=== PATIENT | female | born 1955 | race Caucasian/White ===

== ENCOUNTER 2022-04-28 10:03 | Inpatient (IN) ==
[2022-04-28] MEDS ORDERED: SODIUM CHLORIDE 0.9% 1,000 ML IV STA ×2 (11:55→15:01)
[2022-04-28 12:04] LABS: Basophils % 0.2 % (0.0-0.8); Eosinophils % 0.2 % (0.00-10.9); Hematocrit 37.4 VOL% (35.7-47.0); Hemoglobin 11.9 GM/DL (12.0-16.0); Immature Granulocytes % 35.2 %; Immature Granulocytes Absolute 4.37 #; Lymphocytes # 4.2 10*3/uL (1.4-4.0); Lymphocytes % 33.5 % (21.3-54.2); Mean Corpuscular HGB Conc 31.8 GM/DL (32-36); Mean Corpuscular Volume 96.1 FL (87-102); Mean Platelet Volume 9.7 FL (9.6-12.0); Monocytes # 1.9 10*3/uL (0.11-0.8); Monocytes % 14.9 % (1.7-12.7); NRBC # 0.79 10*3/uL; Platelet Count 113 T/CUMM (130-400); Red Blood Count 3.89 MC/CUMM (3.8-5.5); Red Cell Distribution Width 20.9 % (9.3-17.3); White Blood Count 12.4 T/CUMM (4-12)
[2022-04-28 12:13] LABS: PT Patient Result 10.7 SECS (10.1-12.1); Partial Thromboplastin Time 23.9 SECS (23.7-32.9)
[2022-04-28 12:24] LABS: Amorphous Crystals,Urine Few /HPF (Few); Bilirubin,Urine Negative (Negative); Blood, Urine Negative (Negative); Calcium Oxalate Crystals,Urine Occasional /HPF (Few); Glucose,Urine (UA) Negative (Negative); Ketones,Urine Trace mg/dL (Negative); Mucus,Urine Occasional /LPF (Occasional); Nitrite,Urine Negative (Negative); Protein,Urine 100 mg/dL (Negative); RBC,Urine 2 /HPF (0-4); Urine Appearance Slightly Cloudy (Clear); Urine Color Dark yellow (Yellow); Urine Specific Gravity 1.025 (1.001-1.035); Urine Urobilinogen 0.2 eU/dL (<2.0); Urine pH 8.5 (4.5-8.0)
[2022-04-28 12:33] LABS: Alanine Aminotransferase 23 U/L (13-56); Albumin 3.2 G/DL (3.4-5.0); Alkaline Phosphatase 137 U/L (45-117); Aspartate Amino Transferase 28 U/L (0-37); Bilirubin,Total < 0.39 MG/DL (0.20-1.00); Blood Urea Nitrogen 18 MG/DL (7-18); Calcium 8.7 MG/DL (8.5-10.1); Carbon Dioxide 26 MMOL/L (21-32); Chloride 106 MMOL/L (98-107); Glucose 127 MG/DL (74-106); Osmolality,Calculated 278.7 MOS/KG (273-304); Potassium 3.9 MMOL/L (3.5-5.1); Sodium 138 MMOL/L (136-145); Total Protein 6.3 G/DL (6.4-8.2)
[2022-04-28 13:04] LABS: Band Neutrophils 1 % (0-10); Lymphocytes 43 % (20-55); Metamyelocytes 1 %; Nucleated Red Blood Cells 11 /100 WBC (0-5); Total Cells Counted 100
[2022-04-28 13:09] LABS: Anisocytosis Slight; Microcytosis Slight; Platelet Estimate Adequate
[2022-04-28 13:10] LABS: Atypical Lymphocytes Few
[2022-04-28] MEDS ORDERED: CEFEPIME 1,000 MG in SODIUM CHLORIDE 0.9% 100 ML IV STA (14:37)
[2022-04-28 15:03] LABS: Lymphocytes,CSF 40 %; Monocytes,CSF 60 %; White Blood Cell,CSF 5 C/CUMM
[2022-04-28 15:04] LABS: Appearance,CSF Clear; Red Blood Cell,CSF 507 C/CUMM
[2022-04-28] MEDS: SODIUM CHLORIDE 0.9% 1,000 ML IV SCH (16:25)
[2022-04-28 16:28] LABS: Glucose,CSF 86 MG/DL (40-70)
[2022-04-28] MEDS: ONDANSETRON 4 MG/2 ML VIAL IV PRN (16:28)
[2022-04-28] MEDS: CEFEPIME 1,000 MG in SODIUM CHLORIDE 0.9% 100 ML IV SCH (23:38)
[2022-04-29] MEDS: SODIUM CHLORIDE 0.9% 1,000 ML IV SCH ×3 (01:37→16:09)
[2022-04-29] MEDS: CEFEPIME 1,000 MG in SODIUM CHLORIDE 0.9% 100 ML IV SCH ×4 (05:38→23:00)
[2022-04-29 06:58] LABS: Alanine Aminotransferase 23 U/L (13-56); Alkaline Phosphatase 132 U/L (45-117); Aspartate Amino Transferase 37 U/L (0-37); Bilirubin,Total < 0.39 MG/DL (0.20-1.00); Blood Urea Nitrogen 9 MG/DL (7-18); Calcium 8.1 MG/DL (8.5-10.1); Carbon Dioxide 18 MMOL/L (21-32); Chloride 108 MMOL/L (98-107); Glucose 79 MG/DL (74-106); Osmolality,Calculated 263.4 MOS/KG (273-304); Potassium 4.4 MMOL/L (3.5-5.1); Sodium 133 MMOL/L (136-145); Total Protein 6.2 G/DL (6.4-8.2)
[2022-04-29 07:48] LABS: Basophils % 0.3 % (0.0-0.8); Eosinophils % 0.3 % (0.00-10.9); Hematocrit 41.7 VOL% (35.7-47.0); Immature Granulocytes % 33.6 %; Immature Granulocytes Absolute 4.55 #; Lymphocytes # 4.2 10*3/uL (1.4-4.0); Lymphocytes % 31.1 % (21.3-54.2); Mean Corpuscular HGB Conc 31.2 GM/DL (32-36); Mean Corpuscular Volume 98.8 FL (87-102); Monocytes # 2.6 10*3/uL (0.11-0.8); Monocytes % 19.3 % (1.7-12.7); NRBC # 0.97 10*3/uL; Neutrophils % 15.4 % (38.7-73.9); Red Blood Count 4.22 MC/CUMM (3.8-5.5); Red Cell Distribution Width 21.1 % (9.3-17.3); White Blood Count 13.6 T/CUMM (4-12)
[2022-04-29 07:55] LABS: Platelet Count 81 T/CUMM (130-400)
[2022-04-29] MEDS: ONDANSETRON 4 MG/2 ML VIAL IV PRN (08:52)
[2022-04-29] MEDS: PANTOPRAZOLE 40 MG TABLET PO SCH (08:52)
[2022-04-29 09:03] LABS: Band Neutrophils 3 % (0-10); Lymphocytes 50 % (20-55); Metamyelocytes 1 %; Nucleated Red Blood Cells 12 /100 WBC (0-5); Total Cells Counted 100
[2022-04-29 09:05] LABS: Atypical Lymphocytes Few
[2022-04-29 09:06] LABS: Hypochromia Slight
[2022-04-29 09:07] LABS: Anisocytosis 1+; Tear Drop Cells Slight
[2022-04-29 09:08] LABS: Ovalocytes Slight; Platelet Estimate Decreased
[2022-04-29] MEDS ORDERED: KETOROLAC 15 MG/1 ML VIAL IV ONE (09:57)
[2022-04-29] MEDS ORDERED: MORPHINE 2 MG/1 ML SYRINGE IV PRN (09:57)
[2022-04-29] MEDS ORDERED: ALBUTEROL/IPRATROPIUM 3 ML NEB RESP TX PRN (10:12)
[2022-04-29] MEDS: GABAPENTIN 100 MG CAPSULE PO SCH ×2 (11:53→21:42)
[2022-04-29] MEDS: LACTATED RINGERS 1,000 ML IV SCH (16:12)
[2022-04-30] MEDS: SODIUM CHLORIDE 0.9% 1,000 ML IV SCH ×2 (01:33→08:37)
[2022-04-30] MEDS: LACTATED RINGERS 1,000 ML IV SCH ×3 (02:15→22:39)
[2022-04-30] MEDS: CEFEPIME 1,000 MG in SODIUM CHLORIDE 0.9% 100 ML IV SCH ×4 (04:42→23:01)
[2022-04-30 05:34] LABS: Basophils # 0.2 10*3/uL (0.0-0.2); Basophils % 0.8 % (0.0-0.8); Eosinophils % 0.1 % (0.00-10.9); Hematocrit 32.9 VOL% (35.7-47.0); Hemoglobin 10.4 GM/DL (12.0-16.0); Immature Granulocytes % 38.8 %; Lymphocytes # 4.4 10*3/uL (1.4-4.0); Lymphocytes % 23.1 % (21.3-54.2); Mean Corpuscular HGB Conc 31.6 GM/DL (32-36); Mean Corpuscular Volume 97.9 FL (87-102); Monocytes # 5.2 10*3/uL (0.11-0.8); Monocytes % 27.2 % (1.7-12.7); NRBC # 0.69 10*3/uL; Platelet Count 63 T/CUMM (130-400); Red Blood Count 3.36 MC/CUMM (3.8-5.5); Red Cell Distribution Width 21.2 % (9.3-17.3); White Blood Count 19.1 T/CUMM (4-12)
[2022-04-30 05:51] LABS: Alanine Aminotransferase 19 U/L (13-56); Albumin 2.7 G/DL (3.4-5.0); Alkaline Phosphatase 111 U/L (45-117); Aspartate Amino Transferase 22 U/L (0-37); Bilirubin,Total < 0.39 MG/DL (0.20-1.00); Blood Urea Nitrogen 10 MG/DL (7-18); Calcium 8.2 MG/DL (8.5-10.1); Carbon Dioxide 28 MMOL/L (21-32); Chloride 111 MMOL/L (98-107); Glucose 132 MG/DL (74-106); Osmolality,Calculated 283.1 MOS/KG (273-304); Potassium 3.6 MMOL/L (3.5-5.1); Sodium 142 MMOL/L (136-145); Total Protein 5.3 G/DL (6.4-8.2)
[2022-04-30 05:59] LABS: Band Neutrophils 12 % (0-10); Lymphocytes 45 % (20-55); Metamyelocytes 3 %; Myelocytes 6 %; Total Cells Counted 100
[2022-04-30 06:01] LABS: Platelet Estimate Decreased
[2022-04-30 06:02] LABS: Anisocytosis 2+; Atypical Lymphocytes Few; Macrocytosis 1+; Nucleated Red Blood Cells 6 /100 WBC (0-5); Tear Drop Cells Few
[2022-04-30 06:03] LABS: Ovalocytes Few; Polychromasia Slight
[2022-04-30] MEDS: PANTOPRAZOLE 40 MG TABLET PO SCH (09:28)
[2022-04-30] MEDS: GABAPENTIN 100 MG CAPSULE PO SCH ×2 (09:28→21:13)
[2022-04-30] MEDS ORDERED: KETOROLAC 15 MG/1 ML VIAL IV ONE (11:28)
[2022-05-01] MEDS: CEFEPIME 1,000 MG in SODIUM CHLORIDE 0.9% 100 ML IV SCH ×4 (04:50→23:00)
[2022-05-01 04:56] LABS: Basophils % 0.2 % (0.0-0.8); Eosinophils % 0.1 % (0.00-10.9); Hematocrit 32.9 VOL% (35.7-47.0); Hemoglobin 10.2 GM/DL (12.0-16.0); Lymphocytes # 4.2 10*3/uL (1.4-4.0); Lymphocytes % 17.7 % (21.3-54.2); Mean Corpuscular Volume 98.5 FL (87-102); Monocytes # 6.6 10*3/uL (0.11-0.8); Monocytes % 28.1 % (1.7-12.7); NRBC # 0.58 10*3/uL; Neutrophils % 53.9 % (38.7-73.9); Platelet Count 45 T/CUMM (130-400); Red Blood Count 3.34 MC/CUMM (3.8-5.5); Red Cell Distribution Width 21.4 % (9.3-17.3); White Blood Count 23.5 T/CUMM (4-12)
[2022-05-01 05:12] LABS: Calcium 8.2 MG/DL (8.5-10.1); Osmolality,Calculated 283.1 MOS/KG (273-304); Potassium 3.5 MMOL/L (3.5-5.1)
[2022-05-01 05:49] LABS: Band Neutrophils 9 % (0-10); Eosinophils 2 % (0-10); Lymphocytes 48 % (20-55); Metamyelocytes 1 %; Myelocytes 6 %; Promyelocytes 2 %; Total Cells Counted 100
[2022-05-01 05:50] LABS: Anisocytosis 1+; Atypical Lymphocytes 1+; Nucleated Red Blood Cells 4 /100 WBC (0-5); Platelet Estimate Decreased
[2022-05-01 05:51] LABS: Ovalocytes Few; Smudge Cells 1+; Tear Drop Cells Few
[2022-05-01] MEDS: ONDANSETRON 4 MG/2 ML VIAL IV PRN ×2 (05:53→12:29)
[2022-05-01] MEDS: LACTATED RINGERS 1,000 ML IV SCH ×2 (09:56→21:37)
[2022-05-01] MEDS: PANTOPRAZOLE 40 MG TABLET PO SCH (10:13)
[2022-05-01] MEDS: GABAPENTIN 100 MG CAPSULE PO SCH ×2 (10:13→21:33)
[2022-05-01] MEDS ORDERED: KETOROLAC 15 MG/1 ML VIAL IV PRN (10:58)
[2022-05-01] MEDS ORDERED: IBUPROFEN 600 MG TABLET PO SCH (11:00)
[2022-05-01] MEDS: allopurinoL 300 MG TABLET PO SCH (11:31)
[2022-05-01] MEDS: IBUPROFEN 400 MG TABLET PO SCH ×2 (11:32→21:33)
[2022-05-02] MEDS: CEFEPIME 1,000 MG in SODIUM CHLORIDE 0.9% 100 ML IV SCH ×4 (05:12→23:00)
[2022-05-02 05:17] LABS: Basophils % 0.1 % (0.0-0.8); Hematocrit 34.2 VOL% (35.7-47.0); Hemoglobin 10.7 GM/DL (12.0-16.0); Lymphocytes # 6.7 10*3/uL (1.4-4.0); Lymphocytes % 25.1 % (21.3-54.2); Mean Corpuscular HGB Conc 31.3 GM/DL (32-36); Mean Corpuscular Volume 98.3 FL (87-102); Monocytes # 6.5 10*3/uL (0.11-0.8); Monocytes % 24.4 % (1.7-12.7); Neutrophils % 50.4 % (38.7-73.9); Red Blood Count 3.48 MC/CUMM (3.8-5.5); Red Cell Distribution Width 21.7 % (9.3-17.3); White Blood Count 26.7 T/CUMM (4-12)
[2022-05-02 05:21] LABS: Platelet Count 33 T/CUMM (130-400)
[2022-05-02 05:35] LABS: Calcium 9.3 MG/DL (8.5-10.1); Potassium 4.7 MMOL/L (3.5-5.1)
[2022-05-02 05:45] LABS: Phosphorous 2.9 MG/DL (2.5-4.9); Uric Acid 2.6 MG/DL (2.6-6.0)
[2022-05-02 06:01] LABS: Atypical Lymphocytes Few; Band Neutrophils 9 % (0-10); Eosinophils 1 % (0-10); Lymphocytes 37 % (20-55); Metamyelocytes 4 %; Myelocytes 13 %; Nucleated Red Blood Cells 5 /100 WBC (0-5); Platelet Estimate Decreased; Promyelocytes 1 %; Smudge Cells 1+; Total Cells Counted 100
[2022-05-02 06:02] LABS: Anisocytosis 1+; Basophilic Stippling Slight; Macrocytosis Slight; Tear Drop Cells Few
[2022-05-02] MEDS: PANTOPRAZOLE 40 MG TABLET PO SCH (09:06)
[2022-05-02] MEDS: allopurinoL 300 MG TABLET PO SCH (09:06)
[2022-05-02] MEDS: GABAPENTIN 100 MG CAPSULE PO SCH (09:06)
[2022-05-02] MEDS: LACTATED RINGERS 1,000 ML IV SCH ×3 (09:06→21:54)
[2022-05-02] MEDS: IBUPROFEN 200 MG TABLET PO SCH ×2 (10:47→21:53)
[2022-05-02] MEDS ORDERED: HEPARIN 5,000 UNIT/1 ML VIAL ONE (11:32)
[2022-05-02 17:10] LABS: Reason for Referral LEUKEMIA; Specimen Source SEE COMMENTS
[2022-05-02 17:47] LABS: Reason for Referral SEE COMMENTS; Specimen Source Peripheral blood
[2022-05-02] MEDS: HYDROXYUREA 500 MG CAPSULE PO SCH (21:53)
[2022-05-03] MEDS: LACTATED RINGERS 1,000 ML IV SCH ×2 (01:08→08:51)
[2022-05-03 05:20] LABS: Basophils # 0.2 10*3/uL (0.0-0.2); Basophils % 0.5 % (0.0-0.8); Eosinophils % 0.1 % (0.00-10.9); Hematocrit 32.5 VOL% (35.7-47.0); Hemoglobin 10.1 GM/DL (12.0-16.0); Lymphocytes % 23.1 % (21.3-54.2); Mean Corpuscular HGB Conc 31.1 GM/DL (32-36); Mean Corpuscular Volume 96.4 FL (87-102); Monocytes % 25.7 % (1.7-12.7); NRBC # 0.78 10*3/uL; Neutrophils % 50.6 % (38.7-73.9); Red Blood Count 3.37 MC/CUMM (3.8-5.5); Red Cell Distribution Width 21.7 % (9.3-17.3); White Blood Count 38.8 T/CUMM (4-12)
[2022-05-03] MEDS: CEFEPIME 1,000 MG in SODIUM CHLORIDE 0.9% 100 ML IV SCH ×2 (05:22→11:58)
[2022-05-03 05:29] LABS: Platelet Count 35 T/CUMM (130-400)
[2022-05-03 05:37] LABS: Calcium 9.4 MG/DL (8.5-10.1); Osmolality,Calculated 281.4 MOS/KG (273-304); Potassium 3.3 MMOL/L (3.5-5.1)
[2022-05-03 06:51] LABS: Lymphocytes 22 % (20-55); Nucleated Red Blood Cells 7 /100 WBC (0-5); Total Cells Counted 100
[2022-05-03 06:53] LABS: Anisocytosis 1+; Atypical Lymphocytes Few; Hypochromia Slight; Ovalocytes Slight; Platelet Estimate Decreased
[2022-05-03] MEDS ORDERED: POTASSIUM CHLORIDE 20 MEQ TABLET PO ONE (08:31)
[2022-05-03] MEDS: allopurinoL 300 MG TABLET PO SCH (08:48)
[2022-05-03] MEDS: PANTOPRAZOLE 40 MG TABLET PO SCH (08:48)
[2022-05-03] MEDS: IBUPROFEN 200 MG TABLET PO SCH (08:49)
[2022-05-03] MEDS: HYDROXYUREA 500 MG CAPSULE PO SCH (08:49)
[2022-05-03] MEDS: GABAPENTIN 100 MG CAPSULE PO SCH (08:49)
[2022-05-03 11:15] VITALS: BP 135/77
[2022-05-03] MEDS ORDERED: cephALEXin 500 MG CAPSULE PO SCH (21:00)
== END 2022-05-03 14:56 | disposition home or self-care (01) | DRG 864 ==
LOC: N.ED 10:03 → SUATTDRO 15:22 → N.TELES 15:22
PROVIDERS: ADMIT Internal Medicine; ATTEND Internal Medicine